=== PATIENT | female | born 1990 | race Caucasian/White ===

== ENCOUNTER 2022-11-21 12:03 | Outpatient (CLI) | payer MEDICAID ==
--- NOTE | 2022-11-21 17:24 | XRAY Report ---
PROCEDURE: Hips 2V BILAT INDICATIONS: CONGENITAL HIP DISPLASIA TECHNIQUE: 2 views of the hips were acquired. COMPARISON: None. FINDINGS: Bones: Exaggerated bone formation of the right femoral head. Nonuniform joint space narrowing, with associated osteophytosis of the acetabulum. Soft tissues: No suspicious soft tissue calcifications or masses. IMPRESSION: Suspected congenital hip dysplasia of the right hip. Mild bilateral hip osteoarthritis, right greater than left. Kellgren-Nitin scale of osteoarthritis : 2. Reviewed by: Keyon Diaz on 11/21/2022 5:23 PM PDT Approved by: Keyon Diaz on 11/21/2022 5:23 PM PDT Station ID: [id number]
== END 2022-11-21 12:04 | disposition home or self-care (01) ==
LOC: DI 12:03
PROVIDERS: ATTEND Family Medicine
DX: Q65.89 Other specified congenital deformities of hip (principal); M16.0 Bilateral primary osteoarthritis of hip